=== PATIENT | female | born 1970 | race Caucasian/White ===

== ENCOUNTER 2019-01-10 05:24 | Observation (INO) ==
--- NOTE | 2019-01-03 14:25 | Anesthesiology Consultation ---
Date of Service January 03, 2019 Assessment & Plan (1) Encounter for pre-operative examination: Chart Review Chart Review: Acceptable Risk for Surgery and Patient NOT seen in Pre Admission Testing Consults Requested none History Surgery Operation Date: 01/10/19 07:30 Proposed Procedures p C6-C7 Cervical Disc Arthroplasty - Grayson Kramer DO Height/Weight Height: 5 ft 5 in Weight: 99.79 kg Allergies Allergy/AdvReac Type Severity Reaction Status Date / Time No Known Allergies Allergy Verified 12/02/18 15:08 Medications Home Medications Medication Instructions Recorded Confirmed Last Taken hydrocodone-acetaminophen 1 tab PO Q6H PRN 12/02/18 12/02/18 Unknown losartan 25 mg PO QPM 12/02/18 12/02/18 Unknown sertraline 100 mg PO QPM 12/02/18 12/02/18 Unknown Past Medical History Medical History Anxiety Hypertension Ruptured disc, cervical CURRENT ISUUES; PAIN IN LEFT; Past Surgical History Surgical History History of carpal tunnel surgery of right wrist History of endometrial ablation Hx of section Hx of cholecystectomy Hx of foot surgery RIGHT Hx of sinus surgery Hx of tubal ligation STOP BANG Total 2 Social History Smoking Status: Former smoker Do You Dip or Chew Tobacco: No Smoking End Date: 20 PLUS YEARS AGO Hx Alcohol Use: Yes Alcohol type: beer alcohol intake frequency: a few times a month Hx Substance Use: No Testing Laboratory Results Laboratory Tests 11/30/18 11/30/18 11/30/18 15:01 15:01 15:01 WBC 7.29 Hgb 13.2 Hct 36.9 L Plt Count 358 PT 10.1 INR 1.0 APTT 26.0 Sodium 138 Potassium 4.0 Chloride 106 Carbon Dioxide 28 BUN 16 Creatinine 0.85 Glucose 90
--- NOTE | 2019-01-07 17:57 | History and Physical Report ---
DATE OF ADMISSION: 01/10/2019 She is being preoped for an anterior cervical arthroplasty, cervical spine C6-C7 [facility]. She is a delightful, she has pain. She has associated weakness, progressive neurological deficit. She has failed conservative care. She continues to regress. PAST MEDICAL HISTORY: Hypertension, but no COPD, diabetes, connective tissue disorders. No asthma. PAST SURGICAL HISTORY: , carpal tunnel, cholecystectomy, kidney stent removal. ALLERGIES: Negative. FAMILY HISTORY: Negative heart disease, diabetes. SOCIAL HISTORY: She is . Minimal alcohol. Zero tobacco. Moderately active. REVIEW OF SYSTEMS: Twelve system review is negative for fevers, sweats, chills. Ears, nose, and throat clear. Denies any chest pain, palpitations, asthma, wheezing, no nausea, vomiting, no urgency, frequency. She has muscle pain and associated weakness. OBJECTIVE: VITAL SIGNS: Blood pressure 130/80, pulse 80, respirations 16. CARDIAC: Normal S1, S2, no S3. LUNGS: Clear to auscultation. No rales, rhonchi or wheezing. ABDOMEN: Soft and nontender. NEUROLOGIC: She has positive Spurling maneuver, positive Lhermitte sign. She has weakness. 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 IMAGES: Cervical disc herniation. PLAN: Cervical disc arthroplasty, C6-7 cervical spine.
[2019-01-10] MEDS ORDERED: LR 15ML/HR IV SCH (06:00)
[2019-01-10] MEDS ORDERED: SODIUM CHLORIDE 0.9% 1,000 ML IV SCH (06:00)
[2019-01-10] MEDS ORDERED: CEFAZOLIN 2000MG 2,000 MG/15 ML SYR IV SCH (06:00)
[2019-01-10] MEDS ORDERED: ePHEDrine sulfate 50 MG/ML AMP IV PRN (06:34)
[2019-01-10] MEDS ORDERED: ATROPINE SULFATE 0.1 MG/ML 10ML SYR IV PRN (06:34)
[2019-01-10] MEDS ORDERED: ONDANSETRON INJ 2 MG/ML 2 ML VIAL IV PRN ×2 (06:34→10:53)
[2019-01-10] MEDS ORDERED: BACITRACIN INJ 50,000 UNIT VIAL ONE (06:55)
[2019-01-10] MEDS ORDERED: GELATIN SPONGE SZ 100 ONE (06:55)
[2019-01-10] MEDS ORDERED: THROMBIN FOR SOLN 20000 UNIT KIT ONE (06:55)
[2019-01-10] MEDS ORDERED: BUPIVACAINE/EPINEPHRINE 0.5% MPF 1:200,000 30 ML VIAL ONE (06:55)
[2019-01-10] MEDS ORDERED: ROCURONIUM BROMIDE 10 MG/ML 5 ML VIAL ONE (06:56)
[2019-01-10] MEDS ORDERED: LIDOCAINE HCL 2% 2 ML VIAL/AMP(20MG/ML) INFIL ONE (06:56)
[2019-01-10] MEDS ORDERED: PROPOFOL IV EMULSION 10 MG/ML 20 ML VIAL IV ONE (06:56)
[2019-01-10] MEDS ORDERED: ONDANSETRON INJ 2 MG/ML 2 ML VIAL ONE (06:56)
[2019-01-10] MEDS ORDERED: MIDAZOLAM HCL 1 MG/ML 2ML VIAL ONE (06:57)
[2019-01-10] MEDS ORDERED: fentaNYL citrate 100 MCG/2 ML VIAL ONE ×2 (06:57→08:02)
--- NOTE | 2019-01-10 07:20 | History & Physical Bridge Note ---
Date of Service January 10, 2019 History & Physical Bridge Note I have examined the patient, reviewed the History & Physical and in the interval since the performance of the History & Physical I have noted the following changes of clinical significance: no changes noted
[2019-01-10] MEDS ORDERED: DEXAMETHASONE SOD INJ 4 MG/ML VIAL ONE (08:08)
[2019-01-10] MEDS ORDERED: GLYCOPYRROLATE 0.2 MG/ML VIAL ONE (08:22)
[2019-01-10] MEDS ORDERED: NEOSTIGMINE METHYLSULFATE 5 MG/5 ML SYR ONE (08:22)
--- NOTE | 2019-01-10 09:08 | XRay Report ---
XR cervical spine 1V CLINICAL HISTORY: In OR COMPARISON STUDY: Cervical spine MRI November 22, 2018. Cervical spine radiograph November 30, 2018. TECHNIQUE: 4 crosstable lateral radiographs of the cervical spine were obtained. FINDINGS: These images demonstrate operative findings during a C6-C7 anterior discectomy and fusion. Screws at the C6 and C7 levels are noted. Surgical instrument projects over the operative bed. Endotr acheal tube is noted. IMPRESSION: Lateral cervical spine radiographs obtained during C6-C7 anterior discectomy and fusion. Electronically signed by: Adin Purcell M.D. 01/10/2019 9:06 AM
--- NOTE | 2019-01-10 09:36 | Post Operative Brief Note ---
Immediate Post Op Note v1 Date of Surgery January 10, 2019 Pre & Post Diagnosis Operation Date: 01/10/19 07:30 Pre-Op Diagnosis: Cervical disc herniation Post-Op Diagnosis: Cervical disc herniation Procedure Operation Date: 01/10/19 07:30 Actual Procedures p C6-C7 Cervical Disc Arthroplasty(Not Applicable) - Grayson Kramer DO Surgeon Grayson Kramer DO Hospice Clinical Supervisor flory Estimated Blood Loss 5 Findings Consistent with Post-Op Diagnosis Drains Violet Drain Complications none Disposition Accompanied Patient To Recovery: Yes Overlapping Procedure I was immediately available: during the entire case.
--- NOTE | 2019-01-10 09:57 | Fluoroscopy Report ---
FL cervical 2-3V CLINICAL HISTORY: 48 years-old Female presenting with C6-C7 CERVICAL DISC ARTHROPLASTY. TECHNIQUE: 3 fluoroscopic image(s) recorded as part of an intraoperative procedure. COMPARISON: MRI from 11/22/2018. FINDINGS/IMPRESSION: Surgical material projects over the anterior neck. Grossly normal vertebral body alignment in the cer vical spine. Limited evaluation of the lower cervical spine. The imaging demonstrating the presence o f surgical instrumentation and presumed hardware has extremely limited image quality. Assessment of t his image cannot be made. Please see surgical report for further details. Fluoroscopy dosage (mGy): 18.01. Fluoroscopy time: 5.3 seconds. Number or time of high level fluoroscopy (HLF), digital spot, or digital subtraction images: 20.0 sec onds. Electronically signed by: Hugo Mercedes M.D. 01/10/2019 9:55 AM
[2019-01-10] MEDS: fentaNYL citrate 100 MCG/2 ML VIAL IV PRN ×4 (09:58→10:15)
--- NOTE | 2019-01-10 10:22 | Anesthesiology Progress Note ---
Date of Service January 10, 2019 Anesthesia Post Procedure Vital Signs Vital Signs: Temp Pulse Pulse Resp BP BP BP 01/10/19 10:05 71 16 01/10/19 10:01 73 17 111/75 01/10/19 10:00 65 19 01/10/19 09:56 67 19 115/74 01/10/19 09:55 67 22 01/10/19 09:52 66 18 01/10/19 09:51 66 21 110/78 01/10/19 09:50 66 17 01/10/19 09:46 64 20 112/73 01/10/19 09:45 63 15 01/10/19 09:41 67 17 118/74 01/10/19 09:40 66 17 01/10/19 09:36 67 22 113/77 01/10/19 09:35 68 21 01/10/19 09:32 67 16 01/10/19 09:31 67 16 120/73 01/10/19 09:29 72 15 112/75 01/10/19 09:28 98.6 F 72 18 112/75 01/10/19 06:00 98.4 F 66 20 144/100 H 147/102 H Pulse Ox 01/10/19 10:05 94 01/10/19 10:01 90 01/10/19 10:00 96 01/10/19 09:56 96 01/10/19 09:55 96 01/10/19 09:52 96 01/10/19 09:51 96 01/10/19 09:50 96 01/10/19 09:46 96 01/10/19 09:45 96 01/10/19 09:41 96 01/10/19 09:40 95 01/10/19 09:36 95 01/10/19 09:35 96 01/10/19 09:32 96 01/10/19 09:31 95 01/10/19 09:29 97 01/10/19 09:28 96 01/10/19 06:00 98 Pain Intensity Upper Back: Pain Intensity: 5 Anterior Neck: Pain Intensity: 5 Transfer of Care Handoff Completed per policy Notes Mental Status: alert / awake / arousable and participated in evaluation Patient Amnestic to Procedure: Yes Nausea / Vomiting: adequately controlled Pain: adequately controlled Airway Patency, RR, SpO2: stable & adequate BP & HR: stable & adequate Hydration State: stable & adequate Anesthetic Complications: no major complications apparent and Pt Satisfied with anesthetic care
[2019-01-10] MEDS ORDERED: ACETAMINOPHEN 1,000 MG/100 ML VIAL IV PRN (10:53)
[2019-01-10] MEDS ORDERED: DEXAMETHASONE SOD PHOSPHATE 8 MG in SYRINGE 0 ML IV PRN (10:53)
[2019-01-10] MEDS ORDERED: NALOXONE HCL 0.4 MG/1 ML VIAL/CARP IV PRN (10:53)
[2019-01-10] MEDS ORDERED: RACEPINEPHRINE 2.25% NEBU SOLN 0.5 ML VIAL INH PRN (10:53)
[2019-01-10] MEDS ORDERED: SODIUM CHLORIDE 0.9% 1000ML 1,000 ML IV SCH (10:53)
[2019-01-10] MEDS ORDERED: LORazepam 0.5 MG/1 ML VIAL IV PRN (10:53)
[2019-01-10] MEDS ORDERED: MAGNESIUM HYDROXIDE SUSP 30 ML UDC PO PRN (10:53)
[2019-01-10] MEDS ORDERED: HYDROmorphone INJ 0.5 MG/0.5 ML SYR IV PRN (10:53)
--- NOTE | 2019-01-10 11:38 | Operative Report ---
DATE OF OPERATION: 01/10/2019 PREOPERATIVE DIAGNOSIS: Spinal cord compression, cervical disc herniation C6-C7, cervical spine. POSTOPERATIVE DIAGNOSIS: Spinal cord compression, cervical disc herniation C6-C7, cervical spine. PROCEDURE: Cervical disc arthroplasty, C6-C7 of the cervical spine with the Mobi-C device. COMMAND POST CRAFTSMAN: Ricky Mar PA-C The patient was seen and identified in the preop holding area and marked. A formal bridge note was also provided. DESCRIPTION OF PROCEDURE: The patient was taken back to the operating room. A general intubated anesthetic was provided to the patient, scrubbed, prepped and draped sterile. We made a skin incision transverse over the C6-C7 vertebral area. We dissected the soft tissue in the same plane. She is a fairly large size individual, it was pretty difficult getting into the interval. We had C-arm in, multiple images, we used plain x-ray. Through careful evaluation, we settled on the C6-C7 interspace and it truly was the correct interspace. We made an incision into the disc itself, pituitaries, curettes. We evacuated the whole disc out. I was able to get lateral left and right to the uncovertebral joints bilaterally, could see those perfectly. I got through the posterior longitudinal ligament. I retrieved some big fragments of disc, I was pleased with that. The cord with all visibility was decompressed. I even used a small nerve hook underneath the vertebrae to retrieve any type of free fragments that may have been remaining. We then did our preparation for the Mobi-C device first with a 15 tuning fork. This was then used with a trial 15 x 15 x 5. I felt this was approximately 2 mm too long. We went with a 15 x 13 x 5 that fit perfectly. We selected the device, we irrigated thoroughly, placed in the device. It was countersunk about [address] this under compression. X-rays were excellent, closed in step-like fashion. Sterile dressings applied. The patient returned to PACU stable. There were no apparent intraoperative complications. Blood loss was 5 mL. Sponge and needle count correct at the close. I attest to the content of the Intraoperative Record and any orders documented therein. Any exception s are noted below.
[2019-01-10] MEDS: OXYCODONE HCL IR 5 MG TAB (IMMEDIATE RELEASE) PO PRN ×2 (13:53→20:13)
[2019-01-10] MEDS: CEFAZOLIN 2000MG 2,000 MG/15 ML SYR IV SCH (15:49)
[2019-01-10] MEDS ORDERED: COUGH DROP (SUGAR FREE) LOZ 24 LOZ/1 BOX BUCCAL PRN (16:02)
[2019-01-10] MEDS ORDERED: COUGH DROP (SUGAR FREE) LOZ 24 LOZ/1 BOX BUCCAL ONE (16:05)
[2019-01-10] MEDS: DOCUSATE SODIUM 100 MG CAP PO SCH (20:08)
[2019-01-10] MEDS ORDERED: SERTRALINE HCL 100 MG TABLET PO SCH (21:00)
[2019-01-10] MEDS ORDERED: LOSARTAN POTASSIUM 25 MG TAB PO SCH (21:00)
[2019-01-11] MEDS: OXYCODONE HCL IR 5 MG TAB (IMMEDIATE RELEASE) PO PRN ×2 (00:09→04:09)
[2019-01-11] MEDS: CEFAZOLIN 2000MG 2,000 MG/15 ML SYR IV SCH ×2 (00:30→07:49)
--- NOTE | 2019-01-11 07:29 | Anesthesiology Progress Note ---
Date of Service January 11, 2019 Anesthesia Post Procedure Vital Signs Vital Signs: Temp Pulse Pulse Pulse Resp BP BP 01/11/19 07:17 68 16 01/11/19 06:51 36.5 C 71 18 01/11/19 06:00 36.7 C 70 14 134/87 01/11/19 04:00 36.6 C 72 14 128/84 01/11/19 00:00 36.7 C 75 16 124/85 01/10/19 23:42 88 16 01/10/19 21:55 36.9 C 97 H 16 137/94 01/10/19 19:55 36.7 C 94 H 16 142/91 H 01/10/19 19:51 78 16 01/10/19 17:55 36.7 C 92 H 18 147/92 H 01/10/19 15:55 36.5 C 100 H 18 139/90 01/10/19 15:20 36.4 C L 90 18 136/88 01/10/19 15:05 100 H 18 01/10/19 13:55 36.7 C 82 18 01/10/19 12:55 36.8 C 74 16 01/10/19 11:55 37.1 C 73 18 01/10/19 11:25 37 C 68 18 01/10/19 11:16 73 18 01/10/19 10:55 36.9 C 77 16 01/10/19 10:41 36.4 C L 01/10/19 10:36 74 13 114/81 01/10/19 10:35 74 12 01/10/19 10:31 88 15 116/73 01/10/19 10:30 76 12 01/10/19 10:26 76 13 119/71 01/10/19 10:25 75 14 01/10/19 10:21 73 14 124/72 01/10/19 10:20 75 13 01/10/19 10:16 72 14 114/78 01/10/19 10:15 69 12 01/10/19 10:11 70 14 121/80 01/10/19 10:10 70 14 01/10/19 10:06 66 17 116/74 01/10/19 10:05 71 16 01/10/19 10:01 73 17 111/75 01/10/19 10:00 65 19 06/24/19 09:56 67 19 115/74 06/24/19 09:55 67 22 01/10/19 09:52 66 18 01/10/19 09:51 66 21 110/78 01/10/19 09:50 66 17 01/10/19 09:46 64 20 112/73 01/10/19 09:45 63 15 01/10/19 09:41 67 17 118/74 01/10/19 09:40 66 17 01/10/19 09:36 67 22 113/77 01/10/19 09:35 68 21 01/10/19 09:32 67 16 01/10/19 09:31 67 16 120/73 01/10/19 09:29 72 15 112/75 01/10/19 09:28 37.0 C 72 18 112/75 BP Pulse Ox 01/11/19 07:17 94 01/11/19 06:51 126/85 93 01/11/19 06:00 93 01/11/19 04:00 96 01/11/19 00:00 148/104 H 95 01/10/19 23:42 97 01/10/19 21:55 94 01/10/19 19:55 95 01/10/19 19:51 95 01/10/19 17:55 96 01/10/19 15:55 95 01/10/19 15:20 95 01/10/19 15:05 94 01/10/19 13:55 145/85 H 96 01/10/19 12:55 123/85 96 01/10/19 11:55 120/80 96 01/10/19 11:25 125/84 96 01/10/19 11:16 96 01/10/19 10:55 117/79 94 01/10/19 10:41 95 01/10/19 10:36 94 01/10/19 10:35 94 01/10/19 10:31 94 01/10/19 10:30 94 01/10/19 10:26 93 01/10/19 10:25 93 01/10/19 10:21 94 01/10/19 10:20 94 01/10/19 10:16 94 01/10/19 10:15 94 01/10/19 10:11 93 01/10/19 10:10 94 01/10/19 10:06 93 01/10/19 10:05 94 01/10/19 10:01 90 01/10/19 10:00 96 01/10/19 09:56 96 01/10/19 09:55 96 01/10/19 09:52 96 01/10/19 09:51 96 01/10/19 09:50 96 01/10/19 09:46 96 01/10/19 09:45 96 01/10/19 09:41 96 01/10/19 09:40 95 01/10/19 09:36 95 01/10/19 09:35 96 01/10/19 09:32 96 01/10/19 09:31 95 01/10/19 09:29 97 01/10/19 09:28 96 Pain Intensity Upper Back: Pain Intensity: 5 Anterior Neck: Pain Intensity: 6 Notes Mental Status: alert / awake / arousable and participated in evaluation Patient Amnestic to Procedure: Yes Nausea / Vomiting: adequately controlled Pain: adequately controlled Airway Patency, RR, SpO2: stable & adequate BP & HR: stable & adequate Hydration State: stable & adequate Anesthetic Complications: no major complications apparent
[2019-01-11] MEDS: DOCUSATE SODIUM 100 MG CAP PO SCH (08:00)
--- NOTE | 2019-01-11 13:52 | Discharge Summary ---
She is alert and oriented, minimal complaints. Taking p.o. No chest pain or shortness of breath. She has had an uneventful 20 hours' stay in the hospital. She will be discharged home and is improved and stable. DISCHARGE DIAGNOSIS: Cervical disc arthroplasty. PLAN: She has instructions and precautions given to her in the office and here in the hospital. We will see her back in approximately 10 days.
[2019-01-12] MEDS ORDERED: BISACODYL 5 MG TABEC PO PRN (09:35)
== END 2019-01-11 10:23 | disposition home or self-care (01) ==
LOC: ASU 05:24 → 3E 05:24